=== PATIENT | male | born 1945 | race American Indian/Alaskan Native ===

== ENCOUNTER 2017-03-18 08:37 | Emergency (ER) | payer MEDICARE ==
[2017-03-18 08:55] VITALS: TEMP 97; O2SAT 98
--- NOTE | 2017-03-18 09:34 | ED PDOC ---
HPI: Hypertension/Hypotension Time Seen by Provider: 03/18/17 09:21 Chief Complaint (Nursing): High Blood Pressure History Per: Patient Onset/Duration Of Symptoms: Days (1) Current Symptoms Are (Timing): Still Present Associated Symptoms: denies: Chest Pain, Dyspnea, Dizziness, Focal Weakness, Headache Quality Of Symptoms: Asymptomatic Exacerbating Factor(s): Pos: Recently Missed Doses Of Medication Additional Complaint(s): Referred from Podiatry for elevated BP. MIssed taking BP meds yesterday. Denies chest pain. hardache dizzunees or SOB. NO focal weakness Past Medical History Vital Signs: Last Vital Signs Temp 97 F L 03/18/17 08:52 Pulse 71 03/18/17 09:31 Resp 16 03/18/17 09:31 BP 201/112 H 03/18/17 09:31 Pulse Ox 98 03/18/17 08:52 - Medical History PMH: Diabetes, HTN - Family History Family History: States: Unknown Family Hx - Immunization History Hx Tetanus Toxoid Vaccination: No Hx Influenza Vaccination: No Hx Pneumococcal Vaccination: No - Home Medications Home Medications: Ambulatory Orders Medication Instructions Recorded Insulin Aspar/Insulin N 70/30 30 units SC DAILY 03/06/17 [Novolog MIX 70/30-U/ML 3ML] Metformin HCl [Metformin HCl ER] 1,000 mg PO BID 03/06/17 - Allergies Allergies/Adverse Reactions: Allergies Allergy/AdvReac Type Severity Reaction Status Date / Time No Known Allergies Allergy Verified 03/18/17 08:50 Review of Systems Cardiovascular: Negative for: Chest Pain, Palpitations Respiratory: Negative for: Shortness of Breath Neurological: Negative for: Weakness, Numbness, Headache, Dizziness Physical Exam - Physical Exam Appears: Positive for: Non-toxic, No Acute Distress Skin: Positive for: Normal Color, Warm, DRY Cardiovascular/Chest: Positive for: Regular Rate, Rhythm Respiratory: Positive for: CNT, Normal Breath Sounds Neurologic/Psych: Positive for: Alert, Oriented. Negative for: Motor/Sensory Deficits - ECG O2 Sat by Pulse Oximetry: 98 Disposition - Clinical Impression Clinical Impression: Hypertension - Patient ED Disposition Is Patient to be Admitted: No Counseled Patient/Family Regarding: Diagnosis, Need For Followup - Disposition Referrals: [facility] [Outside] Disposition: Routine/Home Disposition Time: 10:47 Condition: FAIR Instructions: Hypertension (ED) Forms: [employer] (Bengali)
[2017-03-18 09:42] VITALS: RESP 16
[2017-03-18 10:58] VITALS: BP 170/94
[2017-03-18 10:59] VITALS: PULSE 70
--- NOTE | 2017-03-18 11:17 | CARD ---
APPROVED REPORT EKG Measurement Heart [id number] <Conclusion> Sinus rhythm with occasional premature ventricular complexes Possible Left atrial enlargement Cannot rule out Anterior infarct, age undetermined Abnormal ECG
== END 2017-03-18 10:59 | disposition home or self-care (01) ==
LOC: H.ER 08:37
DX: I10 Essential (primary) hypertension (principal); E11.9 Type 2 diabetes mellitus without complications; I49.3 Ventricular premature depolarization; Z79.4 Long term (current) use of insulin